=== PATIENT | male | born 1975 | race Caucasian/White ===

== ENCOUNTER 2018-12-26 21:52 | Emergency (ER) | payer MEDICAID ==
[~2018-12-26] VITALS: Ht 182.9 cm; Wt 68.0 kg
[2018-12-26 21:59] VITALS: BP 119/83
[2018-12-27] MEDS ORDERED: ACETAMINOPHEN/CODEINE#3 (300/30mg) TAB PO ONE ×2 (04:30→07:15)
[2018-12-27] MEDS ORDERED: ONDANSETRON HCL 4 MG/2 ML VIAL IM ONE (05:15)
[2018-12-27] MEDS ORDERED: MORPHINE SULF INJ 2 MG/ML SYRINGE 1ML IM ONE (05:15)
== END 2018-12-27 07:39 | disposition home or self-care (01) ==
LOC: ER 21:56 → EDBD 21:56 → ER 12-27 07:39
DX: S02.69XA Fracture of mandible of other specified site, initial encounter for closed fracture (principal); R51 Headache; F12.90 Cannabis use, unspecified, uncomplicated; Y08.89XA Assault by other specified means, initial encounter; Y93.89 Activity, other specified; Y92.89 Other specified places as the place of occurrence of the external cause; Y99.8 Other external cause status
CPT/HCPCS: 70450; 70486; 72125

== ENCOUNTER 2021-01-05 20:00 | Emergency (ER) | payer MEDICAID ==
[~2021-01-05] VITALS: Ht 182.9 cm; Wt 72.6 kg
[2021-01-05 21:36] LABS: Basophils # (auto) 0.1 10 ^3/uL (0-0.2); Basophils % (auto) 0.3 % (0.0-2.0); Eosinophils # (auto) 0 10 ^3/uL (0-0.8); Eosinophils % (auto) 0.1 % (0.0-7.0); Hematocrit 41.6 % (41.0-53.0); Hemoglobin 14.5 g/dL (13.5-17.5); Lymphocytes # (auto) 1.5 10 ^3/uL (0.4-5.4); Lymphocytes % (auto) 7.3 % (10.0-50.0); Mean Corpuscular Hemoglobin 31.4 pg (28.0-32.0); Mean Corpuscular Hgb Conc. 34.8 g/dL (32.0-36.0); Mean Corpuscular Volume 90.1 fL (80.0-100.0); Monocytes # (auto) 0.7 10 ^3/uL (0-1.3); Monocytes % (auto) 3.5 % (0.0-12.0); Neutrophils # (auto) 17.9 10 ^3/uL (1.6-8.6); Neutrophils % (auto) 88.8 % (37.0-80.0); Nucleated Red Blood Cells % 0.1 %; Platelet Count (auto) 217 10^3/uL (140-450); Red Blood Cells 4.62 10^6/uL (4.5-5.90); Red Cell Distribution Width 12.3 % (11.8-14.3); White Blood Cell 20.2 10^3/uL (4.4-10.8)
[2021-01-05 22:01] LABS: Albumin 3.6 g/dL (3.4-5.0); BUN/Creatinine Ratio 13.3; Calcium 7.9 mg/dL (8.5-10.1); Magnesium 2.6 mg/dL (1.6-2.6); Potassium 3.3 mmol/L (3.5-5.1)
[2021-01-05 22:03] LABS: Total Protein 6.8 g/dL (6.4-8.2)
[2021-01-05] MEDS ORDERED: cefTRIAXone 1GM/50ML D5W 50 ML IV ONE (23:00)
[2021-01-05] MEDS ORDERED: CLINDAMYCIN 300MG IV 50 ML IV ONE (23:00)
[2021-01-06] MEDS ORDERED: TETANUS-DIPTH-ACEL PERTUSSIS 0.5ML SYR Tdap IM ONE (01:39)
[2021-01-06 02:30] VITALS: BP 114/71
== END 2021-01-06 03:44 | disposition home or self-care (01) ==
LOC: EDBD 20:00 → EDUNIT# 20:00 → ER 20:05
DX: S51.852A Open bite of left forearm, initial encounter (principal); T67.5XXA Heat exhaustion, unspecified, initial encounter; L03.114 Cellulitis of left upper limb; Z23 Encounter for immunization; W54.0XXA Bitten by dog, initial encounter; Y93.89 Activity, other specified; Y92.89 Other specified places as the place of occurrence of the external cause; Y99.8 Other external cause status
CPT/HCPCS: 36415; 73090; 73100; 80053; 83735; 85025; 85049; 90471; 90715; 96365; 96368; 99284; J0696; J3490; J7030